=== PATIENT | male | born 1990 ===

== ENCOUNTER 2020-02-22 08:28 | Emergency (ER) | payer BC ==
--- NOTE | 2020-02-22 09:41 | UC ---
UC General HPI - HPI Summary HPI Summary: 29-year-old male comes in with a chief complaint of abdominal pain. Started about a week and a half ago. He did have some white discharge from his penis at that time urination. Denies any concern of STI. Has not had any more obvious discharge from his penis. He does have some difficulty initiating urination and that after finishing urinating feels like he has an quite emptied completely. He feels pain near his anus. Worst pains been about a 5 out of 10. Right now reports it's a one half or one just barely noticeable. Also has some discomfort in both flanks on occasion. Normal appetite's been eating normally. Stools have been looser than usual but are not diarrhea. Has not had any fevers. No history of abdominal surgeries. Denies any penile or genital lesions. Denies any testicular or scrotal pain. - History of Current Complaint Chief Complaint: UCAbdominalPain Stated Complaint: ABDOMINAL PAIN Time Seen by Provider: 02/22/20 08:39 Pain Intensity: 1 - Allergy/Home Medications Allergies/Adverse Reactions: Allergies Allergy/AdvReac Type Severity Reaction Status Date / Time sulfamethoxazole Allergy Rash Verified 02/22/20 08:43 [From Bactrim] trimethoprim [From Bactrim] Allergy Rash Verified 02/22/20 08:43 Home Medications: Home Medications DOXYcycline CAP(*) [DOXYcycline 100MG CAP(*)] 100 mg PO BID #28 cap 02/22/20 [Rx ] PMH/Surg Hx/FS Hx/Imm Hx Previously Healthy: Yes - Surgical History Surgical History: Yes Surgery Procedure, Year, and Place: cyst removed from left neck. - Family History Known Family History: Positive: Non-Contributory - Social History Alcohol Use: Daily Alcohol Amount: 7 shots/day last drink 2 days ago Substance Use Type: Marijuana Smoking Status (MU): Light Every Day Tobacco Smoker Type: Cigarettes Review of Systems All Other Systems Reviewed And Are Negative: Yes Constitutional: Positive: Other - SEE HPI Skin: Positive: Negative Eyes: Positive: Negative ENT: Positive: Negative Respiratory: Positive: Negative Cardiovascular: Positive: Negative Gastrointestinal: Positive: Abdominal Pain - SEE HPI Genitourinary: Positive: Other - SEE HPI Motor: Positive: Negative Neurovascular: Positive: Negative Musculoskeletal: Positive: Negative Neurological/Mental Status: Positive: Negative Psychological: Positive: Negative Is Patient Immunocompromised?: No Physical Exam Triage Information Reviewed: Yes Appearance: Well-Appearing, No Pain Distress, Well-Nourished Vital Signs: Initial Vital Signs Temp 98.9 F 02/22/20 08:45 Pulse 55 02/22/20 08:45 Resp 16 02/22/20 08:45 BP 126/74 02/22/20 08:45 Pulse Ox 100 02/22/20 08:45 Vital Signs Reviewed: Yes Eye Exam: Normal Eyes: Positive: Conjunctiva Clear Neck: Positive: Supple Respiratory: Positive: Lungs clear, Normal breath sounds, No respiratory distress Cardiovascular: Positive: RRR Abdomen Description: Positive: Nontender, Soft, Other: - Negative heel strike negative obturator sign. On examination patient is nontender. Musculoskeletal: Positive: Strength Intact, ROM Intact Neurological: Positive: Alert Psychological: Positive: Age Appropriate Behavior Skin Exam: Normal Course/Dx - Course Course Of Treatment: Urine came back normal discussed this with the patient. Symptoms may be caused by a prostatitis and therefore we will treat with doxycycline as the patient is allergic to Bactrim. Gonorrhea chlamydia are pending. We discussed whether or not to treat with Rocephin and azithromycin at this time. Patient prefers to wait for gonorrhea and chlamydia come back today to determine whether or not he needs to be treated for gonorrhea or chlamydia. We discussed that this may not be prostatitis and may be caused by something other than prostatitis. Planning follow-up with [facility] as the patient does not have a primary care doctor and also follow up with urology to further evaluate the possibility of prostatitis. Also discussed that if he got worse with fevers chills and not feeling well he needed to go the emergency department. - Diagnoses Provider Diagnosis: Abdominal pain Discharge ED - Sign-Out/Discharge Documenting (check all that apply): Patient Departure All imaging exams completed and their final reports reviewed: No Studies - Discharge Plan Condition: Stable Disposition: HOME Prescriptions: DOXYcycline CAP(*) [DOXYcycline 100MG CAP(*)] 100 mg PO BID #28 cap Patient Education Materials: Acute Abdominal Pain (ED) Referrals: Raheem Castillo MD [Medical Doctor] - Adam Romo MD [Medical Doctor] - [facility] [Outside] [facility] [Outside] Additional Instructions: FOLLOW UP [facility]. YOU ARE BEING TREATED FOR A POSSIBLE PROSTATE INFECTION. GO TO THE EMERGENCY DEPARTMENT IF WORSE; PAIN, FEVER, YOU FEEL ILL OR ANY QUESTIONS OR CONCERNS. - Billing Disposition and Condition Condition: STABLE Disposition: Home
[2020-02-23 12:05] LABS: Chlamydia trachomatis NAA Negative (Negative); Neisseria gonorrhoeae (GC) NAA Negative (Negative)
== END 2020-02-22 10:38 | disposition home or self-care (01) ==
LOC: UCEAST 08:28
DX: R10.9 Unspecified abdominal pain (principal); R36.9 Urethral discharge, unspecified; Z88.2 Allergy status to sulfonamides; F17.210 Nicotine dependence, cigarettes, uncomplicated
CPT/HCPCS: 81003; 87086; 87491; 87591; 99202; G0463